=== PATIENT | female | born 1995 | race Two or more races ===

== ENCOUNTER 2019-09-30 23:16 | Emergency (ER) | payer OTHER ==
[~2019-09-30] VITALS: Ht 167.6 cm; Wt 63.5 kg
[2019-10-01] MEDS ORDERED: KETO10TA2 PO (05:27)
== END 2019-10-01 05:52 ==
LOC: ER 23:16
DX: R10.2 Pelvic and perineal pain (principal)

== ENCOUNTER 2022-07-27 17:45 | Emergency (ER) | payer OTHER ==
[~2022-07-27] VITALS: Ht 172.7 cm; Wt 59.0 kg
[~2022-07-27 17:45] MED LIST: KETO10TA2 PO
== END 2022-07-27 21:10 | disposition home or self-care (01) ==
LOC: ER 17:45
DX: R50.9 Fever, unspecified (principal); R11.10 Vomiting, unspecified; Z20.822 Contact with and (suspected) exposure to COVID-19

== ENCOUNTER 2024-10-18 13:59 | Emergency (ER) | payer OTHER ==
[~2024-10-18] VITALS: Ht 172.7 cm; Wt 68.0 kg
[2024-10-18] MEDS ORDERED: 0.9 % SODIUM CHLORIDE 1,000 ML IV ONE (16:00)
[2024-10-18] MEDS ORDERED: FAMOTIDINE/PF 20 MG/2 ML VIAL IV ONE (16:00)
[2024-10-18] MEDS ORDERED: ONDANSETRON HCL 2 MG/ML VIAL IV ONE (16:00)
[2024-10-18] MEDS ORDERED: FAMOTIDINE/PF 20 MG/2 ML VIAL ONE (16:18)
[2024-10-18] MEDS ORDERED: ONDANSETRON HCL 2 MG/ML VIAL ONE (16:18)
[2024-10-18 16:33] LABS: HEMATOCRIT 31.5 % (36.0-45.00); MEAN CELL VOLUME 66.6 fL (80.00-100.00); MEAN CORPUSCULAR HEMOGLOBIN 21.2 pg (27.00-32.0); MEAN CORPUSCULAR HGB CONC 31.9 g/dl (32.0-36.0); PLATELET COUNT 444 K/uL (150-450); RED BLOOD COUNT 4.74 M/uL (4.00-6.00)
[2024-10-18 16:48] LABS: ALBUMIN 3.5 gm/dL (3.4-5.0); BILIRUBIN TOTAL 0.29 mg/dL (0.3-1.2); CALCIUM 8.8 mg/dL (8.5-10.1); CREATININE SERUM 0.76 mg/dL (0.55-1.02); GFR 91.29; GLOBULINA 4.7 G/DL (2.4-3.5); POTASSIUM 3.88 mEq/L (3.5-5.1); TOTAL PROTEIN 8.2 gm/dL (6.4-8.2)
[2024-10-18 17:44] LABS: PH,URINE 5.5 (5.0-8.0); URINE APPEARANCE Cloudy; URINE BILIRRUBIN Negative (NEGATIVE); URINE BLOOD Negative; URINE COLOR Yellow; URINE GLUCOSE Negative (NEGATIVE); URINE KETONE Negative (NEGATIVE); URINE LEUKOCYTE Small; URINE NITRATE Positive; URINE PROTEIN Negative (NEGATIVE); URINE UROBILINOGEN 0.2 E.U./dl
[2024-10-18 17:48] LABS: URINE EPITHELIAL CELLS 181.6 uL (0.0-38.8); URINE WBC 252.8 uL (0.0-23.2)
[2024-10-18 18:13] LABS: URINE BACTERIA > 9821.5 uL (0.0-1933); URINE CAST 0.14 uL (0.0-1.40); URINE MUCUS HEAVY
[2024-10-18] MEDS ORDERED: DICLOFENAC SODI50 MG PO (19:39)
[2024-10-18] MEDS ORDERED: BACTRIM DS TAB1 EACH PO (19:39)
[2024-10-18] MEDS ORDERED: MIRALAX17 GM PO (19:40)
== END 2024-10-18 20:28 ==
LOC: ER 14:01
PROVIDERS: Emergency Medicine
DX: N83.202 Unspecified ovarian cyst, left side (principal)

== ENCOUNTER 2024-11-10 00:01 | Emergency (ER) | payer OTHER ==
[~2024-11-10] VITALS: Ht 167.6 cm; Wt 72.6 kg
[~2024-11-10 00:01] MED LIST changes: +BACTRIM DS TAB1 EACH PO; +DICLOFENAC SODI50 MG PO; +MIRALAX17 GM PO
[2024-11-10] MEDS ORDERED: KETOROLAC TROMETHAMINE 30 MG VIAL IV STA (02:11)
[2024-11-10] MEDS ORDERED: OxyCODONE HCL/APAP UD (PERCOCET) PO STA (02:11)
[2024-11-10 03:23] LABS: HEMATOCRIT 30.8 % (36.0-45.00); HEMOGLOBIN 9.7 g/dL (12.0-15.00); MEAN CELL VOLUME 65.1 fL (80.00-100.00); MEAN CORPUSCULAR HEMOGLOBIN 20.6 pg (27.00-32.0); MEAN CORPUSCULAR HGB CONC 31.7 g/dl (32.0-36.0); PLATELET COUNT 471 K/uL (150-450); RED BLOOD COUNT 4.73 M/uL (4.00-6.00)
[2024-11-10 03:29] LABS: CALCIUM 9.2 mg/dL (8.5-10.1); CREATININE SERUM 0.76 mg/dL (0.55-1.02); GFR 91.29; POTASSIUM 3.49 mEq/L (3.5-5.1)
[2024-11-10 03:41] LABS: INR 1.09; PARTIAL THROMBOPLASTIN TIME 25.9 SECONDS (22.0-34.0); PROTHROMBIN TIME 11.8 SECONDS (9.0-11.5)
== END 2024-11-10 05:08 | disposition home or self-care (01) ==
LOC: ER 00:03
DX: R10.2 Pelvic and perineal pain (principal); D25.9 Leiomyoma of uterus, unspecified

== ENCOUNTER 2025-01-31 01:29 | Emergency (ER) | payer OTHER ==
[~2025-01-31] VITALS: Ht 172.7 cm; Wt 79.4 kg
[2025-01-31] MEDS ORDERED: TRAMADOL HCL 50 MG TABLET PO STA (02:09)
[2025-01-31] MEDS ORDERED: KETOROLAC TROMETHAMINE 60 MG VIAL IM STA (02:09)
[2025-01-31] MEDS ORDERED: KETOROLAC TROMETHAMINE 60 MG VIAL IM ONE (02:22)
[2025-01-31 03:34] LABS: BASO % 0.5 % (0.1-1.2); EOS % 2.5 % (0.7-7.0); HEMATOCRIT 31.6 % (34.1-44.9); HEMOGLOBIN 9.6 g/dL (11.2-15.7); LYMPH # 2.77 (1.18-3.74); LYMPH % 34.9 % (19.3-53.1); MEAN CORPUSCULAR HEMOGLOBIN 20.6 pg (25.6-32.2); MONO # 0.72 (0.24-0.82); MONO % 9.1 % (4.7-12.5); NEUT # 4.19 (1.56-6.13); NEUT % 52.7 % (34.0-71.1); PLATELET COUNT 427 K/uL (163-369); RED BLOOD COUNT 4.66 M/uL (3.93-5.22); RED CELL DISTRIBUTION WIDTH 20.4 % (11.6-14.4)
== END 2025-01-31 04:22 | disposition home or self-care (01) ==
LOC: ER 01:41
DX: M54.50 Low back pain, unspecified (principal)